=== PATIENT | male | born 1975 | race Caucasian/White ===

== ENCOUNTER 2017-11-06 19:18 | Emergency (ER) | payer SELFPAY ==
[2017-11-06 19:26] VITALS: BP 123/82; PULSE 71; RESP 18; TEMP 97.7; O2SAT 100
[2017-11-06] MEDS ORDERED: Lidocaine 5% Patch TD ONE (19:58)
--- NOTE | 2017-11-06 20:00 | C.PDOC ---
History Of Present Illness 42 y/o male c/o right sided back pain since last Sat, seen by PMD and started on muscle relaxant and ibuprofen. pt developed vesicular rash to right side back and right anterior chest wall on Wednesday. pt denies fever and chills. no hx immunosuppressed state, denies hiv. Time Seen by Provider: 11/06/17 19:30 Chief Complaint (Nursing): Abnormal Skin Integrity History Per: Patient History/Exam Limitations: no limitations Onset/Duration Of Symptoms: Days (4) Current Symptoms Are (Timing): Still Present Location Of Injury: Right: Back, Chest Quality Of Symptoms: Painful Severity: Moderate Past Medical History Reviewed: Historical Data, Nursing Documentation, Vital Signs Vital Signs: Last Vital Signs Temp 97.7 F 11/06/17 19:23 Pulse 71 11/06/17 19:23 Resp 18 11/06/17 19:23 BP 123/82 11/06/17 19:23 Pulse Ox 100 11/07/17 01:50 - Medical History PMH: No Chronic Diseases Denies: Chronic Kidney Disease Family History: States: Unknown Family Hx - Social History Hx Alcohol Use: No Hx Substance Use: No - Immunization History Hx Tetanus Toxoid Vaccination: Yes Hx Influenza Vaccination: Yes Hx Pneumococcal Vaccination: No Review Of Systems Constitutional: Negative for: Fever, Chills Cardiovascular: Negative for: Chest Pain, Palpitations Respiratory: Negative for: Cough, Shortness of Breath Gastrointestinal: Negative for: Abdominal Pain Skin: Positive for: Rash Neurological: Negative for: Weakness, Numbness Physical Exam - Physical Exam Appears: Non-toxic, No Acute Distress Skin: Warm, Dry, Rash (approx 8cm x 6 cm area to right upper back with erythematous base and scattered and coalesced vesicles; slight smaller area similar on anrerior right chest wall., does not cross midline in back or front. ) Head: Atraumatic, Normacephalic ED Course And Treatment O2 Sat by Pulse Oximetry: 100 Medical Decision Making Medical Decision Making: pt with rash to posterior and anterior chest wall since wednesday, c/w shingles. pt has rx for valtrex from [facility], has not yet started it; will give lidoderm patch and steroids along with valtrex. Disposition Counseled Patient/Family Regarding: Diagnosis, Need For Followup, Rx Given - Disposition Referrals: [facility] [Outside] Disposition: HOME/ ROUTINE Disposition Time: 20:02 Condition: GOOD Additional Instructions: Please take Valtrex and Prednisone as prescribed. Remove lidoderm patch in 12 hours. Take ibuprofen for pain. Follow up with your PMD or in medical clinic next week. Return to ER for any worsening pain, fever or other concerns. Prescriptions: predniSONE [predniSONE Tab] 40 mg PO DAILY #10 tab Instructions: Shingles (DC) Forms: General Discharge Instructions, [facility] ([place]ese), Work Excuse - Clinical Impression Clinical Impression: Herpes zoster
[2017-11-06] MEDS ORDERED: Lidocaine 5% Patch TD STA (20:30)
[2017-11-07] MEDS ORDERED: Lidocaine 5% Patch TD SCH (10:00)
== END 2017-11-06 20:37 | disposition home or self-care (01) ==
LOC: C.ER 19:18
DX: B02.9 Zoster without complications (principal)